=== PATIENT | female | born 1965 | race Caucasian/White ===

== ENCOUNTER 2022-09-12 11:00 | Day surgery (SDC) | payer BC, SELFPAY ==
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
[2022-09-12 11:40] VITALS: BP 151/90; PULSE 67; RESP 17; TEMP 36.4; O2SAT 96
[2022-09-12 12:03] VITALS: BMI 38.9
[2022-09-12] MEDS: Tropicam./Phenyleph. (1/2.5%) 5 ML BTL OS ×3 (12:09→12:26)
[2022-09-12] MEDS: Balanced Salt Soln.-PLUS 500 ML BAG OP (12:52)
[2022-09-12] MEDS: Tetracaine 0.5% 4 ML BTL OS (12:53)
[2022-09-12] MEDS: Lidocaine 1% Pres-Free 5 ML VIAL (12:54)
[2022-09-12] MEDS: Duovisc Viscoelastic System EACH 1 EACH (12:54)
[2022-09-12] MEDS: Phenylephrine/Lidocaine (15/10) MG/ML 1 ML VIAL (12:56)
[2022-09-12] MEDS: Povidone-Iodine Ophth 30 ML BTL (12:58)
[2022-09-12 13:18] VITALS: BP 125/84; PULSE 67; RESP 18; TEMP 36.4; O2SAT 98
--- NOTE | 2022-09-12 13:19 | PDOC.DSDIS_ITS ---
Date of service: 09/12/22 Time of Service: 13:19 Discharge Plan Disposition Patient Disposition: Home Discharge Details Attending Provider: Yon Nj Primary Care Provider: Melisa Zamarripa Home Meds and New Rx's Prescriptions: No Action multivitamin Tablet 1 tab PO DAILY acetaminophen 325 mg Tablet 325 mg PO DIRECTED aspirin [Aspir-81] 81 mg Tablet,Delayed Release (Dr/Ec) 81 mg PO DAILY pantoprazole 40 mg Tablet,Delayed Release (Dr/Ec) 40 mg PO DAILY [place] 3 Fish Oil Capsule 1 cap PO DAILY Discharge Instructions Stand Alone Forms: Post-op Topical Cataract, Devika Bryant (DSU) Discharge Orders Discharge Orders: Discharge Order (Routine); Ordered 09/12/22 Ordered By: Yon Nj DS: Diagnosis Discharge Diagnosis (1) Nuclear age-related cataract, left eye: Status: Resolved (2) Cortical age-related cataract, left eye: Status: Resolved
--- NOTE | 2022-09-12 13:20 | ROE_ITS ---
Date of service: 09/12/22 Time of Service: 13:21 Operative Note Operative Note DATE OF PROCEDURE: 09/12/22 PRE-OP DIAGNOSIS: Nuclear/cortical cataract, left eye POST-OP DIAGNOSIS: same PROCEDURE: Cataract extraction using phacoemulsification with intraocular lens implant, left eye SURGEON: Yon Nj ANESTHESIA TYPE: Local By Surgeon and MAC Refer to Anesthesia Record PATHOLOGY: none sent COMPLICATIONS: None Patient was transported to: same day Patient's condition: stable Implants: Carlos and Carlos Tecnis Eyhance [id number] Indications: Progressive decreased vision due to cataract, left eye Procedure Description: CATARACT SURGERY OPERATIVE REPORT PREOPERATIVE DIAGNOSIS: 1. Nuclear/cortical cataract, left eye POSTOPERATIVE DIAGNOSIS: Same OPERATION: 1. Cataract extraction using phacoemulsification with posterior chamber intraocular lens implant, left eye. IOL: IOL Steam Plant Records Clerk/Model: Carlos & Carlos Tecnis Eyhance [id number] IOL Power: + 24.0 diopters IOL Serial Number: [id number] Optic Diameter: 6.0 mm Haptic/Overall Diameter: 13.0 mm PHACO INFO: Jose AlbertoAvidBiotics Vision System with OZil and Active Fluidics Cumulative Dispersed Energy (CDE): 5.05 seconds SURGEON: Yon Nj MD, NERY ANESTHESIA: Monitored A [facility] (MAC), with local sub-tenon's anesthetic infiltration COMPLICATIONS: None SPECIMENS: None INDICATIONS FOR PROCEDURE: The patient is a 57-year-old lady with history of diminished visual acuity in her left eye. She is noted to have a significant nuclear and cortical cataract with significant cortical spoking and is very symptomatic. She is significantly symptomatic that she desires cataract surgery and attempt to improve and maximize her vision. The option of cataract surgery was offered to the patient and she wished to proceed. She desired postoperative refractive target of -1.50 diopters for ideal computer distance. See office notes for detailed information. PROCEDURE: The correct surgical eye was identified and marked as the left eye and the pupil was dilated in the preoperative area using mydriatics and cycloplegics. The dilated pupil size was 7.0 mm. Oral sedation was administered in the form of an Imprimis MKO Melt (midazolam 3mg/ketamine 25mg/ondansetron 2mg). The patient was brought to the operating room where cardiopulmonary monitoring was instituted and surgical time-out was performed, confirming the correct operative eye and IOL power. The patient was quite anxious once in the operating room, so an IV was started and 2 mg of Versed IV were administered. Topical anesthesia was administered and ophthalmic povidone-iodine 5% was instilled into the conjunctival fornices. The himanshu-ocular area was prepped with Betadine 10% solution and draped in the usual sterile fashion for intraocular surgery, including an aperture drape. A Tegaderm transparent film dressing was cut in half and used to cover the lashes and lid margins. Care was taken to sequester the lashes and lid margins under the Tegaderm dressing. A lid speculum was placed between the lids of the operative eye and the Jose Alberto LuxOR Revalia operating microscope was maneuvered into position. Dariana scissors were then used to make a conjunctival buttonhole approximately 6mm posterior to the limbus in the inferonasal quadrant. Blunt dissection was carried out to expose bare sclera, and a blunt-tipped sub-tenon?s anesthesia cannula was introduced and passed posteriorly along the globe where non- preserved plain lidocaine was injected into posterior sub-Tenon?s space. A sideport knife was used to make a paracentesis port superiorly/superiort emporally. Intraocular phenylephrine/lidocaine was injected int the anterior chamber.. The anterior chamber was filled with viscoelastic. A keratome knife was used to construct a 2-plane near-clear corneal tunnel extending 2.0mm into clear cornea temporally. A flap was raised on the anterior capsule and capsulorhexis forceps were used to complete a continuous curvilinear capsulorhexis of 5.0 mm. Balanced salt solution was then used to perform cortical cleaving hydrodissection and nuclear hydrodelineation until the lens could be freely rotated within the capsular bag. The lens nucleus was then disassembled and removed within the capsular bag and iris plane using phacoemulsification. Residual cortical material was removed using the 45-degree angled silicone I/A tip with 0.3mm port. The posterior capsule was carefully polished to remove as much residual lens epithelial cells as safely possible. The capsular bag was then inflated and the anterior chamber deepened with viscoelastic. The lens implant described above was inserted into the capsular bag using the Carlos and Carlos Simplicity pre-loaded injector. . A Kuglen hook was used to dial the IOL into position. Residual viscoelastic was then removed first from posterior to the IOL, then from the anterior chamber using the I/A handpiece. The lens implant was noted to center nicely within the capsular bag. The incisions were stromally hydrated, and the anterior chamber was reformed using BSS. Then 0.5cc of moxifloxacin 1.0mg/ml were injected into the capsular bag and anterior chamber. The incisions were checked with a Weck spear and found to be secure. Several drops of ophthalmic povidone-iodine 5% were then applied to the eye followed by two drops of Imprimis combination prednisolone/moxifloxacin/nepafenac solution. The drapes were removed and a clear plastic protective eye shield was placed over the eye. The patient was then returned to Same Day Surgery in stable condition.
[2022-09-12] MEDS: Acetaminophen 500 MG TAB 1000 MG PO (13:28)
--- NOTE | 2022-09-12 13:49 | W.ANESPOSTOP ---
Postoperative Evaluation Date, Time and Location Date Performed: 09/12/22 Time Performed: 13:20 Patient Location: Day Surgery Unit Vital Signs Most Recent Imported Vital Signs: Most Recent Vital Signs Temp Pulse Resp BP Pulse Ox 36.4 C L 67 18 125/84 98 09/12/22 13:18 09/12/22 13:18 09/12/22 13:18 09/12/22 13:18 09/12/22 13:18 Pain Score Most Recent Pain Score: Most Recent Pain Score Pain Level 0 09/12/22 13:18 Assessment Mental Status: Awake (Alert & Oriented to Patient Baseline) Airway and Respiratory Function: Patent airway with normal (patient baseline) respiratory exam Cardiovascular Function: Hemodynamically Stable Hydration Status: Adequately Hydrated Nausea & Vomiting: No Nausea or Vomiting Pain: Pt. Denies Any Pain Peripheral Nerve Block: Patient did not receive a nerve block
[2022-09-12 13:50] VITALS: BP 135/89; PULSE 68; RESP 18; TEMP 36.5; O2SAT 99
== END 2022-09-12 13:55 | disposition home or self-care (01) ==
PROVIDERS: PCP Nurse Practitioner; Visit Provider Ophthalmology
PROC: (CPT 66984; principal; 2022-09-12 12:45)
DX: H25.12 Age-related nuclear cataract, left eye (principal); H25.012 Cortical age-related cataract, left eye; K21.9 Gastro-esophageal reflux disease without esophagitis
CPT/HCPCS: 66984; V2632; J2250

== ENCOUNTER 2022-09-26 09:34 | Day surgery (SDC) | payer BC, SELFPAY ==
[2022-09-26 09:45] VITALS: BP 151/91; PULSE 69; RESP 16; TEMP 36.1; O2SAT 99
[2022-09-26] MEDS: Tropicam./Phenyleph. (1/2.5%) 5 ML BTL OD ×3 (09:55→10:09)
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
[2022-09-26] MEDS: Lactated Ringers 1,000 ML 30 ML IV (10:36)
[2022-09-26 10:41] VITALS: BMI 39.8
[2022-09-26] MEDS: Balanced Salt Soln.-PLUS 500 ML BAG OP (11:10)
[2022-09-26] MEDS: Duovisc Viscoelastic System EACH 1 EACH (11:12)
[2022-09-26] MEDS: Lidocaine 1% Pres-Free 5 ML VIAL (11:12)
[2022-09-26] MEDS: Tetracaine 0.5% 4 ML BTL OD (11:12)
[2022-09-26] MEDS: Phenylephrine/Lidocaine (15/10) MG/ML 1 ML VIAL (11:13)
[2022-09-26] MEDS: Povidone-Iodine Ophth 30 ML BTL (11:14)
[2022-09-26 11:33] VITALS: BP 116/83; PULSE 76; RESP 16; TEMP 36.3; O2SAT 98
--- NOTE | 2022-09-26 11:36 | W.PM.DSUDISC ---
Date of service: 09/26/22 Time of Service: 11:36 Discharge Plan Discharge Details Attending Provider: Yon Nj Primary Care Provider: Melisa Zamarripa Home Meds and New Rx's Prescriptions: No Action multivitamin Tablet 1 tab PO DAILY acetaminophen 325 mg Tablet 325 mg PO DIRECTED aspirin [Aspir-81] 81 mg Tablet,Delayed Release (Dr/Ec) 81 mg PO DAILY pantoprazole 40 mg Tablet,Delayed Release (Dr/Ec) 40 mg PO DAILY [place] 3 Fish Oil Capsule 1 cap PO DAILY Discharge Instructions Stand Alone Forms: Post-op Topical Cataract, Devika Bryant (DSU) DS: Diagnosis Discharge Diagnosis (1) Cortical age-related cataract, right eye: Status: Resolved (2) Posterior subcapsular age-related cataract, right eye: Status: Resolved
--- NOTE | 2022-09-26 11:38 | ROE_ITS ---
Date of service: 09/26/22 Time of Service: 11:38 Operative Note Operative Note DATE OF PROCEDURE: 09/26/22 PRE-OP DIAGNOSIS: Cortical/posterior subcapsular cataract, right eye POST-OP DIAGNOSIS: same PROCEDURE: Cataract extraction using phacoemulsification with intraocular lens implant, right eye SURGEON: Yon Nj ANESTHESIA TYPE: Local By Surgeon and MAC Refer to Anesthesia Record ESTIMATED BLOOD LOSS: 0 PATHOLOGY: none sent COMPLICATIONS: None Patient was transported to: same day Patient's condition: stable Implants: Carlos & Carlos Tecnis Eyhance [id number] Indications: Progressive visual loss due to cataract, right eye Procedure Description: CATARACT SURGERY OPERATIVE REPORT PREOPERATIVE DIAGNOSIS: 1. Nuclear/cortical cataract, right eye POSTOPERATIVE DIAGNOSIS: Same OPERATION: 1. Cataract extraction using phacoemulsification with posterior chamber intraocular lens implant, right eye. IOL: IOL Paint Roller Winder/Model: Carlos & Carlos Tecnis Eyhance DIB00 IOL Power: + 23.5 diopters IOL Serial Number: [id number] Optic Diameter: 6.0mm Haptic/Overall Diameter: 13.0mm PHACO INFO: Jose Alberto Geeklisturion Vision System with OZil and Active Fluidics Cumulative Dispersed Energy (CDE): 4.13 seconds SURGEON: Yon Nj MD, NERY ANESTHESIA: Monitored Anesthesia Care (MAC), with local sub-tenon's anesthetic infiltration COMPLICATIONS: None SPECIMENS: None INDICATIONS FOR PROCEDURE: The patient is a 57-year-old lady with history of diminished visual acuity in both eyes secondary to the development of bilateral cortical/posterior subcapsular cataract. She is significantly symptomatic that she desires cataract surgery and attempt to improve and maximize her vision. She has already undergone cataract surgery in the left eye and is doing well postoperatively. She now presents for cataract surgery in the right eye. See office notes for detailed information. PROCEDURE: The correct surgical eye was identified and marked as the right eye and the pupil was dilated in the preoperative area using mydriatics and cycloplegics. The dilated pupil size was 7.0 mm. She received Versed 4 mg IV for sedation. The patient was brought to the operating room where cardiopulmonary monitoring was instituted and surgical time-out was performed, confirming the correct operative eye and IOL power. Topical anesthesia was administered and ophthalmic povidone-iodine 5% was instilled into the conjunctival fornices. The himanshu-ocular area was prepped with Betadine 10% solution and draped in the usual sterile fashion for intraocular surgery, including an aperture drape. A Tegaderm transparent film dressing was cut in half and used to cover the lashes and lid margins. Care was taken to sequester the lashes and lid margins under the Tegaderm dressing. A lid speculum was placed between the lids of the operative eye and the Jose Alberto LuxOR Revalia operating microscope was maneuvered into position. Dariana scissors were then used to make a conjunctival buttonhole approximately 6mm posterior to the limbus in the inferonasal quadrant. Blunt dissection was carried out to expose bare sclera, and a blunt-tipped sub-tenon?s anesthesia cannula was introduced and passed posteriorly along the globe where non- preserved plain lidocaine was injected into posterior sub-Tenon?s space. A sideport knife was used to make a paracentesis port. Intraocular phenylephrine/lidocaine was injected into the anterior chamber. The anterior chamber was filled with viscoelastic. A keratome knife was used to construct a 2-plane clear corneal tunnel extending 2.0mm into clear cornea. A flap was raised on the anterior capsule and capsulorhexis forceps were used to complete a continuous curvilinear capsulorhexis of 5.5 mm. Balanced salt solution was then used to perform cortical cleaving hydrodissection and nuclear hydrodelineation until the lens could be freely rotated within the capsular bag. The lens nucleus was then disassembled and removed within the capsular bag and iris plane using phacoemulsification. Residual cortical material was removed using the I/A handpiece. The posterior capsule was carefully polished to remove as much residual lens epithelial cells as safely possible. The capsular bag was then inflated and the anterior chamber deepened with cohesive viscoelastic. The lens implant described above was inserted into the capsular bag using the Carlos and Marisela Simplicity pre-loaded injector. A Kuglen hook was used to dial the IOL into position. Residual viscoelastic was then removed first from posterior to the IOL, then from the anterior chamber using the I/A handpiece. The lens implant was noted to center nicely within the capsular bag. The incisions were stromally hydrated, and the anterior chamber was reformed using BSS. Then 0.5cc of moxifloxacin 1.0mg/ml were injected into the capsular bag and anterior chamber. The incisions were checked with a Weck spear and found to be secure. Several drops of ophthalmic povidone-iodine 5% were then applied to the eye followed by two drops of Imprimis combination prednisolone/moxifloxacin/nepafenac solution. The drapes were removed and a clear plastic protective eye shield was placed over the eye. The patient was then returned to Same Day Surgery in stable condition.
[2022-09-26] MEDS: Acetaminophen 500 MG TAB 1000 MG PO (11:50)
[2022-09-26 11:55] VITALS: BP 130/70; PULSE 76; RESP 16; TEMP 36.3; O2SAT 97
--- NOTE | 2022-09-26 12:15 | W.ANESPOSTOP ---
Postoperative Evaluation Date, Time and Location Date Performed: 09/26/22 Time Performed: 11:29 Patient Location: Day Surgery Unit Vital Signs Most Recent Imported Vital Signs: Most Recent Vital Signs Temp Pulse Resp BP Pulse Ox 36.3 C L 76 16 130/70 97 09/26/22 11:55 09/26/22 11:55 09/26/22 11:55 09/26/22 11:55 09/26/22 11:55 Pain Score Most Recent Pain Score: Most Recent Pain Score Pain Level 0 09/26/22 11:55 Assessment Mental Status: Awake (Alert & Oriented to Patient Baseline) Airway and Respiratory Function: Patent airway with normal (patient baseline) respiratory exam Cardiovascular Function: Hemodynamically Stable Hydration Status: Adequately Hydrated Nausea & Vomiting: No Nausea or Vomiting Pain: Pt. Denies Any Pain Peripheral Nerve Block: Patient did not receive a nerve block
== END 2022-09-26 12:18 | disposition home or self-care (01) ==
LOC: SUR 09:34
PROVIDERS: PCP Nurse Practitioner; Visit Provider Ophthalmology
PROC: (CPT 66984; principal; 2022-09-26 11:15)
DX: H25.011 Cortical age-related cataract, right eye (principal); H25.041 Posterior subcapsular polar age-related cataract, right eye; K21.9 Gastro-esophageal reflux disease without esophagitis; Z98.42 Cataract extraction status, left eye
CPT/HCPCS: 66984; V2632; J2250